=== PATIENT | male | born 1985 | race Hispanic/Latino ===

== ENCOUNTER 2022-02-10 15:50 | Emergency (ER) | payer SELFPAY ==
[~2022-02-10] VITALS: Ht 170.2 cm; Wt 82.8 kg
[2022-02-10] MEDS ORDERED: IBUPROFEN600 MG PO (17:30)
[2022-02-10] MEDS ORDERED: FLEXERIL5 M1 PO (17:30)
[2022-02-10 17:38] VITALS: BP 169/97
== END 2022-02-10 17:42 | disposition home or self-care (01) | DRG 563 ==
LOC: ED 15:50
DX: S39.012A Strain of muscle, fascia and tendon of lower back, initial encounter (principal); X50.3XXA Overexertion from repetitive movements, initial encounter; Y93.H1 Activity, digging, shoveling and raking